=== PATIENT | female | born 1995 | race Caucasian/White ===

== ENCOUNTER 2017-03-01 08:07 | Emergency (ER) | payer OTHER ==
[2017-03-01 08:41] LABS: APPEARANCE,URINE CLOUDY; BILIRUBIN,URINE NEGATIVE (NEGATIVE); GLUCOSE, URINE NEGATIVE (NEGATIVE); KETONES,URINE NEGATIVE (NEGATIVE); LEUKOCYTE ESTERASE,URINE MODERATE (NEGATIVE); NITRITE,URINE POSITIVE (NEGATIVE); PROTEIN,URINE NEGATIVE (NEGATIVE); URINE SPECIFIC GRAVITY 1.026; UROBILINOGEN,URINE NEGATIVE mg/dL (<2.0)
--- NOTE | 2017-03-01 09:03 | ER Document Report ---
ED General - General Chief Complaint: Vag Bleeding, +preg <12wks Stated Complaint: ABDOMINAL CRAMPING Time Seen by Provider: 03/01/17 08:26 Mode of Arrival: Ambulatory Information source: Patient Notes: Patient presents to the emergency department very anxious reporting that she is . She reported she had some spotting yesterday none today. Reports abdominal cramping earlier today none right now. Reports history of with miscarriage is . Patient reports she took 5 home test yesterday and they were all positive. Patient REPORTS SHE IS NOT SURE OF WHEN HER LAST MENSTRUAL PERIOD WAS, POSSIBLY THE END OF DECEMBER BUT IT WAS VERY LIGHT. Patient denies vaginal discharge pain with void. Denies fever vomiting diarrhea. Patient is asking for an ultrasound to evaluate her . TRAVEL OUTSIDE OF THE [place] IN LAST 30 DAYS: No - HPI Onset: Yesterday Onset/Duration: Sudden Quality of pain: Cramping Severity: None - none now Associated symptoms: Nausea Exacerbated by: Denies Relieved by: Denies Similar symptoms previously: No Recently seen / treated by doctor: No - Related Data Allergies/Adverse Reactions: No Known Allergies Allergy (Unverified 03/01/17 08:58) Past Medical History - General Information source: Patient Last Menstrual Period: November - Social History Smoking Status: Unknown if Ever Smoked Cigarette use (# per day): No Frequency of alcohol use: None Drug Abuse: None Lives with: Family Family History: None Patient has suicidal ideation: No Patient has homicidal ideation: No - Medical History Medical History: Negative Renal/ Medical History: Reports: Hx Ectopic . Denies: Hx Peritoneal Dialysis Surgical Hx: Negative Review of Systems - Review of Systems Notes: Review HPI for review of systems., All other systems negative Physical Exam - Vital signs Vitals: Temp Pulse Resp BP Pulse Ox 98.6 F 120 H 16 146/72 H 100 03/01/17 08:11 03/01/17 08:11 03/01/17 08:11 03/01/17 08:11 03/01/17 08:11 - Notes Notes: PHYSICAL EXAMINATION: GENERAL: Well-appearing and in no acute distress HEAD: Atraumatic, normocephalic. EYES: ht, extraocular movements intact, sclera anicteric, conjunctiva are normal. ENT: nares patent, Moist mucous membranes. NECK: Normal range of motion, supple without lymphadenopathy LUNGS: CTAB and equal. No wheezes rales or rhonchi. HEART: Regular rate and rhythm without murmurs ABDOMEN: Soft, no tenderness. No guarding, no rebound , denies pain BACK: Denies pain EXTREMITIES: Normal range of motion, NEUROLOGICAL: Cranial nerves grossly intact. Normal sensory/motor exams. PSYCH: Normal mood, normal affect. SKIN: Warm, Dry, normal turgor, no rashes or lesions noted Course - Re-evaluation Re-evalutation: 03/01/17 09:03 Patient is very anxious and emotional support was provided. Will provide patient with a serum hCG and ultrasound as indicated. Patient was also educated on early and ability to see anything on the ultrasound. She verbalized understanding tall instructions. 03/01/17 10:09 notified by pct that lab cannot find patients blood. I contacted lab. Lab received mislabeled specimen. PCT informed. HCG redrawn. Patient to ultrasound 03/01/17 10:23 Urine with positive nitrite, elevated WBCs. Discussed with patient she denies pain and frequency but reports her urine has had a foul odor lately. No allergies. 03/01/17 11:11 Positive test, US inconclusive. pt has hx of ectopic. Pt was instructed on importance of fu HCG. She was also educated on ectopic , s/s rupture, she verbalized understanding, verbalized understanding regarding importance of fu. - Vital Signs Vital signs: Temp Pulse Resp BP Pulse Ox 97.7 F 94 16 122/82 98 03/01/17 11:34 03/01/17 11:34 03/01/17 08:11 03/01/17 11:34 03/01/17 11:34 - Laboratory Laboratory results interpreted by me: 03/01/17 03/01/17 03/01/17 08:18 10:09 10:09 Serum HCG, Qual POSITIVE H Beta HCG, Quant 140.58 H Urine Nitrite POSITIVE H Ur Leukocyte Esterase MODERATE H - Diagnostic Test Radiology reviewed: Image reviewed, Reports reviewed - no visualized IUP Discharge - Discharge Clinical Impression: Elevated blood pressure reading, Urinary tract infection Qualifiers: Urinary tract infection type: site unspecified Hematuria presence: without hematuria Qualified Code(s): N39.0 - Urinary tract infection, site not specified Condition: Stable Disposition: HOME, SELF-CARE Instructions: Nitrofurantoin ([facility]), Ob-[facility] [employer] [facility], ([facility]), Urinary Tract Infection ([facility]) Additional Instructions: *You have been evaluated for abdominal cramping, UTI, *No visualized intrauterine extrauterine noted on your ultrasound , ectopic cannot be ruled out *Follow up on FridayMarch 03 for repeat BHCG, Your BHCG today was 140.58 Call the culture nurse at [phone] two hours after your test for results *Take medication as prescribed for your UTI *Push fluids *Follow up with your primary care provider within one week for recheck of your urine *Follow up with [facility] for care within one week *Return to ED for worsening condition, changes, needs, sudden pain, vaginal bleeding, concerns Monitor your blood pressure. Your blood pressure was elevated today. This may be because you were anxious, in pain or because you need medication. It is important to follow up with your primary care provider for full evaluation. Prescriptions: Nitrofurantoin/Nitrofuran Mac [Macrobid 100 mg Capsule] 100 mg PO BID #10 capsule Forms: Elevated Blood Pressure, Follow-Up Laboratory Testing
--- NOTE | 2017-03-01 10:57 | RADIOLOGY REPORT (SQ) ---
EXAM DESCRIPTION: U/S OB TRANSVAGINAL W/O DOP COMPLETED DATE/TIME: 03/01/2017 10:36 am REASON FOR STUDY: preg, abd pain COMPARISON: None. TECHNIQUE: Endovaginal static and realtime grayscale images acquired of the pelvis. Additional selec mehnaz spectral and color Doppler images recorded. All images stored on PACs. BHCG: Not available LIMITATIONS: None. FINDINGS: UTERUS: No visualized intrauterine . Uterus measures 7.4 x 4.5 x 3.4 cm in size. Endometrial stripe 8 mm in thickness. No intrauterine gestational sac is identified. Cervix close d, 2.4 cm in length RIGHT ADNEXA: Normal ovary with normal vascular flow. Right ovary 2.8 x 2 x 1.8 cm in size. No adnexal free fluid. No adnexal masses. LEFT ADNEXA: Normal ovary with normal vascular flow. Left ovary 2.9 x 2.5 x 2.9 cm in size. No adnexal free fluid. No adnexal masses. FREE FLUID: None. OTHER: No other significant finding. IMPRESSION: NO VISUALIZED INTRA- OR EXTRAUTERINE . Quantitative beta HCG not available. ECTOPIC CANNOT BE EXCLUDED. FOLLOW-UP ULTRASOUND AND SERIAL BHCG LEVELS STRONGLY RECOMMENDED TO ACCURATELY ASSESS STATU S. TECHNICAL DOCUMENTATION: JOB ID: [id number] [employer]- All Rights Reserved
[2017-03-01 11:41] VITALS: BP 122/82
== END 2017-03-01 11:41 | disposition home or self-care (01) ==
LOC: ER 08:07
DX: O23.40 Unspecified infection of urinary tract in pregnancy, unspecified trimester (principal); O46.91 Antepartum hemorrhage, unspecified, first trimester; R03.0 Elevated blood-pressure reading, without diagnosis of hypertension; R10.9 Unspecified abdominal pain; Z3A.00 Weeks of gestation of pregnancy not specified
CPT/HCPCS: 36415; 76817; 81001; 84702; 84703; 87086; 87088; 87186; 99284

== ENCOUNTER → 2017-03-03 | Outpatient (CLI) | payer OTHER | LOC: LAB 10:35 | PROVIDERS: ATTEND Nurse Practitioner Family | DX: O26.899 Other specified pregnancy related conditions, unspecified trimester (principal); R10.9 Unspecified abdominal pain | CPT/HCPCS: 36415; 84702 ==

== ENCOUNTER 2017-12-08 12:58 | Emergency (ER) | payer BC, OTHER ==
[2017-12-08 13:20] VITALS: BP 121/73
[2017-12-08] MEDS ORDERED: ONDANSETRON 4 MG TAB.RAPDIS PO ONE (13:57)
--- NOTE | 2017-12-08 13:59 | ER Document Report ---
ED Medical Screen (RME) - General Chief Complaint: Abdominal Pain Stated Complaint: RIGHT SIDE PAIN Time Seen by Provider: 12/08/17 13:50 Notes: RAPID MEDICAL EVALUATION DISCLOSURE I have seen this patient as part of a Rapid Medical Evaluation and, if applicable, placed any initially appropriate orders. The patient will be seen and fully evaluated, including a full history and physical exam, by a provider ( in Main ED or Fast Track) when a room becomes available. 22-year-old female approximately 21 weeks gestation here with complaints of right lower quadrant abdominal pain that started yesterday. Pain has been progressively worsening. She has also had chills nausea and vomiting but no dysuria frequency hesitancy vaginal bleeding/discharge fevers. She has taken Tylenol for the pain. She reports that she has a history of "inflamed appendix " 2 years ago and she was placed on antibiotics however they did not remove her appendix at that time but she does not know why. Today she went to go see her [employer] EN[employer] TECHNICIAN and was sent here for further evaluation including a CT (however patient states that she does not want a CT scan and asking for ultrasound instead). EXAM Minimal RUQ and suprapubic TTP Mild to moderate RLQ TTP No peritoneal signs TRAVEL OUTSIDE OF THE [place] IN LAST 30 DAYS: No - Related Data Allergies/Adverse Reactions: No Known Allergies Allergy (Verified 12/08/17 13:56) Past Medical History - Social History Chew tobacco use (# tins/day): No Frequency of alcohol use: None Drug Abuse: None Renal/ Medical History: Reports: Hx Ectopic . Denies: Hx Peritoneal Dialysis Physical Exam - Vital signs Vitals: Temp Pulse Resp BP Pulse Ox 98.6 F 103 H 16 121/73 99 12/08/17 13:19 12/08/17 13:19 12/08/17 13:19 12/08/17 13:19 12/08/17 13:19 Course - Vital Signs Vital signs: Temp Pulse Resp BP Pulse Ox 98.6 F 103 H 16 121/73 99 07/09/18 13:19 12/08/17 13:19 12/08/17 13:19 12/08/17 13:19 12/08/17 13:19
[2017-12-08 14:33] LABS: ABSOLUTE EOSINOPHILS # (AUTO) 0.2 10^3/uL (0.0-0.6); ABSOLUTE MONOCYTES (AUTO) 0.7 10^3/uL (0.1-1.4); ABSOLUTE NEUT (AUTO) 8.4 10^3/uL (1.7-8.2); BASOPHILS % (AUTO) 0.3 % (0-2); EOSINOPHILS % (AUTO) 2.1 % (0-6); HEMATOCRIT 34.9 % (36.0-47.0); HEMOGLOBIN 12.1 g/dL (12.0-15.5); LYMPHOCYTES % (AUTO) 17.7 % (13-45); MEAN CORPUSCULAR HEMOGLOBIN 29.7 pg (27.0-33.4); MEAN CORPUSCULAR HGB CONC 34.7 g/dL (32.0-36.0); MEAN CORPUSCULAR VOLUME 86 fl (80-97); MONOCYTES % (AUTO) 6.3 % (3-13); PLATELET COUNT 302 10^3/uL (150-450); RED BLOOD COUNT 4.07 10^6/uL (3.72-5.28); RED CELL DISTRIBUTION WIDTH 12.6 % (11.5-14.0); SEGMENTED NEUTROPHILS % (AUTO) 73.6 % (42-78); TOTAL CELLS COUNTED % (AUTO) 100 %; WHITE BLOOD COUNT 11.4 10^3/uL (4.0-10.5)
[2017-12-08 14:46] LABS: APPEARANCE,URINE SLIGHTLY-CLOUDY; BILIRUBIN,URINE NEGATIVE (NEGATIVE); COLOR,URINE YELLOW; GLUCOSE, URINE NEGATIVE (NEGATIVE); KETONES,URINE NEGATIVE (NEGATIVE); LEUKOCYTE ESTERASE,URINE NEGATIVE (NEGATIVE); NITRITE,URINE NEGATIVE (NEGATIVE); PROTEIN,URINE NEGATIVE (NEGATIVE); URINE SPECIFIC GRAVITY 1.019
[2017-12-08 14:57] LABS: ALANINE AMINOTRANSFERASE 17 U/L (9-52); ALKALINE PHOSPHATASE 50 U/L (38-126); ANION GAP 10 (5-19); ASPARTATE AMINO TRANSFERASE 15 U/L (14-36); BILIRUBIN,DIRECT 0.2 mg/dL (0.0-0.4); BILIRUBIN,TOTAL 0.6 mg/dL (0.2-1.3); BLOOD UREA NITROGEN 6 mg/dL (7-20); CALCIUM 9.3 mg/dL (8.4-10.2); CARBON DIOXIDE 23 mmol/L (22-30); CHLORIDE 108 mmol/L (98-107); GLUCOSE 86 mg/dL (75-110); LIPASE 60.9 U/L (23-300); POTASSIUM 4.1 mmol/L (3.6-5.0); SODIUM 140.8 mmol/L (137-145); TOTAL PROTEIN 6.7 g/dL (6.3-8.2)
--- NOTE | 2017-12-08 16:07 | ER Document Report ---
ED General <JOEL THOMPSON - Last Filed: 12/08/17 17:56> - General Mode of Arrival: Ambulatory Information source: Patient TRAVEL OUTSIDE OF THE [place] IN LAST 30 DAYS: No <GONZALO NOVOA - Last Filed: 12/08/17 20:04> - General Chief Complaint: Abdominal Pain Stated Complaint: RIGHT SIDE PAIN Time Seen by Provider: 12/08/17 13:50 Notes: 22 y.o female presents to the ED with RLQ abd pain and nausea. Pt reports that she is 21 weeks , A2. She reports that her pain was of sudden onset and woke her up from sleep Friday morning, 12/06/17, around 0230. Pt reports that her pain was intermittent and had some relief during the day yesterday and the day before. She states that her pain resumed, woke her from sleep this morning around 0300, and has been intermittent and worsening today. She reports previous problems with her appendix about 2 years ago in [place] and was treated with antibiotics. She denies any appendectomy because she was told that she didn't have to worry about her appendix causing more problems. Pt reports that she takes Zantac and Diclegis at home. (GONZALO NOVOA) - Related Data Allergies/Adverse Reactions: No Known Allergies Allergy (Verified 12/08/17 13:56) Past Medical History - General Information source: Patient - Social History Smoking Status: Never Smoker Chew tobacco use (# tins/day): No Frequency of alcohol use: None Drug Abuse: None Family History: None Patient has suicidal ideation: No Patient has homicidal ideation: No Renal/ Medical History: Reports: Hx Ectopic . Denies: Hx Peritoneal Dialysis <GONZALO NOVOA - Last Filed: 12/08/17 20:04> Review of Systems - Review of Systems Constitutional: No symptoms reported EENT: No symptoms reported Cardiovascular: No symptoms reported Respiratory: No symptoms reported Gastrointestinal: See HPI, Abdominal pain, Nausea Genitourinary: No symptoms reported Female Genitourinary: See HPI, Musculoskeletal: No symptoms reported Skin: No symptoms reported Hematologic/Lymphatic: No symptoms reported Neurological/Psychological: No symptoms reported -: Yes All other systems reviewed and negative <GONZALO NOVOA - Last Filed: 07/09/18 20:04> Physical Exam <JOEL THOMPSON - Last Filed: 12/08/17 17:56> <GONZALO NOVOA - Last Filed: 12/08/17 20:04> - Vital signs Vitals: Temp Pulse Resp BP Pulse Ox 98.6 F 103 H 16 121/73 99 12/08/17 13:19 12/08/17 13:19 12/08/17 13:19 12/08/17 13:19 12/08/17 13:19 - Notes Notes: Physical Exam: General: Alert, appears well. HEENT: Normocephalic. Atraumatic. PERRL. Extraocular movements intact. Oropharynx clear. Neck: Supple. Non-tender. Respiratory: No respiratory distress. Clear and equal breath sounds bilaterally. Cardiovascular: Regular rate and rhythm. Abdominal: Overweight. RLQ tenderness to palpation, No guarding or rebound. Mid right lateral abd tenderness and tenderness over the distal ribs. Soft, normal Bowel Sounds. Back: Mildly tender with RT CVA percussion and hard to tell if the muscles are tender or if the tenderness is coming from the RT kidney. No deformity or step off. Extremities: Moves all four extremities. Upper extremities: Normal inspection. Normal ROM. Lower extremities: Normal inspection. No edema. Normal ROM. Neurological: Normal cognition. AAOx3. Normal speech. Psychological: Normal affect. Normal Mood. Skin: Warm. Dry. Normal color. (GONZALO NOVOA) Course - Laboratory Result Diagrams: 12/08/17 14:03 12/08/17 14:03 - Diagnostic Test Radiology reviewed: Reports reviewed - Ultrasound of the right lower quadrant did not visualize the appendix <JOEL THOMPSON - Last Filed: 12/08/17 17:56> - Laboratory Result Diagrams: 12/08/17 14:03 12/08/17 14:03 <GONZALO NOVOA - Last Filed: 12/08/17 20:04> - Re-evaluation Re-evalutation: 12/08/17 17:59 The patient gives a history of an appendix ultrasound in an outpatient clinic and [place] in [facility]. That ultrasound showed "an inflamed appendix". She was treated with antibiotics. Given how difficult it is to do appendix ultrasounds and the need for high volume to obtain competency, this diagnosis is quite suspect. Today an appendix ultrasound was done and the appendix could not be visualized. The patient's white blood cell count is nondiagnostic. The patient does have right lower quadrant abdominal tenderness, but the abdomen is soft with good bowel sounds and this pain is been going on now for a few days. I have reviewed options with the patient including CT scan which at this time I do not think there is a justifiable radiation exposure to the fetus. MRI scan which will take some time to do and the patient wants to leave because her locked himself out of the house. Antibiotic management and follow-up with her doctor in the morning which is what she chooses at this time. She will also take Pepcid and Benadryl for a diffuse papular rash that looks like a viral exanthem. She was being tested for PUPPS was, however she is not in her later third trimester, the rash is not occurring along stretch brady, and the rash is somewhat diffuse on arms legs and trunk including her back. ( JOEL THOMPSON) - Vital Signs Vital signs: Temp Pulse Resp BP Pulse Ox 98.6 F 103 H 16 121/73 99 12/08/17 13:19 12/08/17 13:19 12/08/17 13:19 12/08/17 13:19 12/08/17 13:19 - Laboratory Laboratory results interpreted by de: 12/08/17 12/08/17 12/08/17 14:03 14:03 14:03 WBC 11.4 H Hct 34.9 L Absolute Neutrophils 8.4 H Chloride 108 H BUN 6 L Creatinine 0.41 L Urine Urobilinogen 4.0 H Discharge <JOEL THOMPSON - Last Filed: 12/08/17 17:56> <GONZALO NOVOA - Last Filed: 12/08/17 20:04> - Discharge Clinical Impression: Right lower quadrant abdominal pain, Second trimester , Viral exanthem Condition: Stable Disposition: HOME, SELF-CARE Additional Instructions: Abdominal Pain There are many causes of abdominal pain. Pain can mean a serious problem requiring surgery (such as appendicitis). It can also be an innocent problem that goes away on its own (such as a viral infection). Often, time must pass to determine the cause of pain. The physician does not feel that hospitalization is necessary, at present. Things may change within the next 24 hours. Call the doctor or come back for re- examination if any problems occur, such as: (1) Pain that becomes more severe, steady, or becomes concentrated in one specific area. Also, pain that is more severe with movement or coughing. (2) Vomiting that persists or becomes more frequent. (3) Blood in the vomitus, urine, or bowel movements. Blood in the stool may have a tarry or black appearance. (4) Shaking chills or fever greater than 100 degrees F. (5) The abdomen becomes more distended or swollen. (6) Bowel movements cease. (7) Failure to improve as expected. Viral Rash Your rash has been diagnosed as a viral exanthem (rash). This rash typically breaks out as your body begins to react against a viral infection. It usually means you are about to get better. There are hundreds of different viruses which could be responsible, and since this problem gets better by itself , no further testing is necessary to identify the exact virus. It does not appear to be measles, rubella, or chicken pox. Treatment is based on symptoms. If itching is present, antihistamines may be helpful. Try not to scratch the rash. Other symptoms caused by the virus, such as diarrhea, nausea, cough, or congestion, may also require treatment. Wash your hands frequently to avoid passing the virus to others. Call the doctor for re-evaluation if the rash becomes painful, worsens significantly, or appears to have become infected. You should also return if there are any new or dramatic symptoms, such as severe headache, stiff neck, chest pain, or high fever. Take the medication as prescribed. Drink plenty of fluids. Eat a low-fat diet. Take antacids for heartburn as needed. Take Benadryl and Pepcid for the itching caused by your rash. Follow-up with your MACHINE TOOL ELECTRICIAN doctor tomorrow for reevaluation of your abdominal pain. RETURN TO THE EMERGENCY ROOM IF ANY NEW OR WORSENING SYMPTOMS. Prescriptions: Amox Tr/Potassium Clavulanate [Augmentin 875-125 mg Tablet] 1 tab PO BID #14 tablet Metronidazole [Flagyl 500 mg Tablet] 500 mg PO TID #21 tablet Referrals: MARY SANTIAGO MD [Primary Care Provider] - Follow up tomorrow Scribe Attestation: 12/08/17 18:02 I personally performed the services described in the documentation, reviewed and edited the documentation which was dictated to the scribe in my presence, and it accurately records my words and actions. (JOEL THOMPSON) Scribe Documentation - Scribe Written by Efra:: Efra Peters 12/08/17 1623 acting as scribe for :: Patricia <GONZALO NOVOA - Last Filed: 12/08/17 20:04>
[2017-12-08] MEDS ORDERED: LIDOCAINE 2% VISCOUS SOLN 20 ML UDCUP PO ONE (16:13)
[2017-12-08] MEDS ORDERED: MAG HYDROX/AL HYDROX/SIMETH SUSP 30 ML UDCUP PO ONE (16:13)
--- NOTE | 2017-12-08 16:37 | RADIOLOGY REPORT (SQ) ---
EXAM DESCRIPTION: U/S ABDOMEN LTD W/DOPPLER COMPLETED DATE/TIME: 12/08/2017 4:17 pm REASON FOR STUDY: , RLQ pain, hx 'inflamed appendix' COMPARISON: None. TECHNIQUE: Static and real time norris scale imaging performed of the right lower quadrant with additi onal compression maneuvers. LIMITATIONS: None. FINDINGS: APPENDIX: Not visualized. BOWEL: Active peristalsis with fluid in the bowel. COMPRESSION MANEUVERS: No rebound pain with compression. OTHER: No hepato renal fossa fluid. No right-sided hydronephrosis. Right ovary 2.7 x 1.8 cm in size . No cysts. IMPRESSION: APPENDIX NOT IDENTIFIED. ACTIVE PERISTALSIS. TECHNICAL DOCUMENTATION: JOB ID: [id number] [employer]- All Rights Reserved Reading location - IP/workstation name: [email or web address]
[2017-12-08] MEDS ORDERED: FAMOTIDINE 20 MG TABLET PO ONE (18:12)
[2017-12-08] MEDS ORDERED: AMOXICILLIN TR/POT CLAVULANATE 500-125 MG TAB PO ONE (18:12)
[2017-12-08] MEDS ORDERED: AMOXICILLIN TRIHYDRATE 500 MG CAPSULE PO ONE (18:13)
[2017-12-08] MEDS ORDERED: METRONIDAZOLE 500 MG TABLET PO ONE (18:14)
== END 2017-12-08 18:31 | disposition home or self-care (01) ==
LOC: ER 12:58
DX: O26.892 Other specified pregnancy related conditions, second trimester (principal); B09 Unspecified viral infection characterized by skin and mucous membrane lesions; R10.31 Right lower quadrant pain; R11.0 Nausea; Z3A.21 21 weeks gestation of pregnancy; Z79.899 Other long term (current) drug therapy
CPT/HCPCS: 99284; 36415; 83690; 85025; 80053; 81001; 76705; 93976; J3490